=== PATIENT | male | born 1990 | race Caucasian/White ===

== ENCOUNTER 2016-12-16 04:30 | Emergency (ER) | payer BC ==
[~2016-12-16] VITALS: Ht 180.3 cm; Wt 140.6 kg
[~2016-12-16 04:30] MED LIST: HYDROCHLOROTHIAZIDE PO; PROAIR HFA0.09 MG/Ac IH
[2016-12-16 04:54] VITALS: BP 147/78
--- NOTE | 2016-12-16 05:10 | NUR ---
26Y M BIB SELF C/O LEFT KNEE PAIN SINCE 0830PM 12/15/16 . PT STATES HIS DAUGHTER FELL ON HIS KNEE EARLIER TODAY AND SINCE THEN THE AREA HAS GOTTEN MORE SWOLLEN . DENIES N/V/D; SKIN IS PINK/WARM/DRY; AAOX4 WITH EVEN AND STEADY GAIT; LUNGS CLEAR BL; HR EVEN AND REGULAR; PT DENIES ANY FEVER, CP, SOB, OR COUGH AT THIS TIME; PATIENT STATES PAIN OF 6/10 AT THIS TIME; VSS; PATIENT POSITIONED FOR COMFORT; HOB ELEVATED; BEDRAILS UP X2; BED DOWN. ER MD MADE AWARE OF PT STATUS.
--- NOTE | 2016-12-16 05:12 | NUR ---
Patient being evaluated by physician at bedside.
[2016-12-16] MEDS ORDERED: KETOROLAC 60 MG/2 ML VIAL IM ONE (05:15)
[2016-12-16] MEDS ORDERED: traMADol 50 MG TAB PO ONE (05:15)
[2016-12-16 05:41] VITALS: BP 132/79
--- NOTE | 2016-12-16 05:41 | NUR ---
Patient discharged with v/s stable. Written and verbal after care instructions given and explained. Patient alert, oriented and verbalized understanding of instructions. Ambulatory with steady gait. All questions addressed prior to discharge. ID band removed. Patient advised to follow up with PMD. Rx of MOTRIN 800MG, CIPRODEX, AND ULTRAM 50MG given. Patient educated on indication of medication including possible reaction and side effects. Opportunity to ask questions provided and answered.
== END 2016-12-16 05:41 | disposition home or self-care (01) ==
LOC: MED 04:30
DX: S80.02XA Contusion of left knee, initial encounter (principal); H60.91 Unspecified otitis externa, right ear; J45.909 Unspecified asthma, uncomplicated; I10 Essential (primary) hypertension; W19.XXXA Unspecified fall, initial encounter; Y93.89 Activity, other specified; Y92.89 Other specified places as the place of occurrence of the external cause; Y99.8 Other external cause status
CPT/HCPCS: 96372; 99283; J1885

== ENCOUNTER 2019-11-15 02:13 | Emergency (ER) | payer BC, OTHER ==
[~2019-11-15] VITALS: Ht 177.8 cm; Wt 136.1 kg
[~2019-11-15 02:13] MED LIST changes: +ALBU-136 IH; -PROAIR HFA0.09 MG/Ac IH
[2019-11-15 02:15] VITALS: BP 163/91
--- NOTE | 2019-11-15 02:15 | NUR ---
TO BED # 11 AMBULATORY
--- NOTE | 2019-11-15 02:17 | NUR ---
VISUAL ACUITY BOTH EYE 20/40, RT EYE 20/50, LEFT EYE 20/50
--- NOTE | 2019-11-15 02:17 | NUR ---
29 Y/O MALE C/O DAVIS, BLURRY VISION, LIGHT SENSITIVITY, SORETROAT, RT EAR PAIN, CHEST PAIN X 1 DAY. CHEST PAIN AND DAVIS IS CONSTANT AND DESCRIBES IT THROBBING. LUNG SOUNDS ALL CLEAR THORUGHOUT. NO RESP DISTRESS NOTED. HEART SOUND S1S2 PRESENT. VSS, STEADY GAIT. CAP REFILL < 3, NO EDEMA PRESENT. DRY COUGH PRESENT. BRISK 3MM PERRLA. CHILLS. DENIES FEVER,N,V,D. A &O X4. CLEAR SPEECH. RATES PAIN 7/10. EKG SHOWS NSR. NKA. PMH: HTN,ASTHMA
[2019-11-15] MEDS ORDERED: diphenhydrAMINE 50 MG/ML VIAL IM ONE (02:40)
[2019-11-15] MEDS ORDERED: PROCHLORPERAZINE 10 MG/2 ML VIAL IM ONE (02:40)
[2019-11-15 03:14] VITALS: BP 163/91
--- NOTE | 2019-11-15 03:14 | NUR ---
PT DISCHARGED WITH PAPERWORK. EDUCATED PT REGARDING MEDICATIONS AND D/C DIAGNOSIS. PT VERBALIZED UNDERSTANDING OF TEACHING. TOLD PT TO FOLLOW UP WITH PCP AND WHEN TO RETURN TO ED. PT AT STABLE CONDITION. ALL QUESTIONS ANSWERED.
== END 2019-11-15 03:14 | disposition home or self-care (01) ==
LOC: MED 02:13
DX: G43.909 Migraine, unspecified, not intractable, without status migrainosus (principal); H66.91 Otitis media, unspecified, right ear; I10 Essential (primary) hypertension; J45.909 Unspecified asthma, uncomplicated; Z79.899 Other long term (current) drug therapy
CPT/HCPCS: 93005; 96372; 99283; J0780; J1200

== ENCOUNTER 2019-12-17 01:49 | Emergency (ER) | payer OTHER ==
[~2019-12-17] VITALS: Ht 177.8 cm; Wt 139.7 kg
[2019-12-17 01:56] VITALS: BP 135/93
--- NOTE | 2019-12-17 02:06 | NUR ---
PT AMBULATED TO LOBBY. VISUAL ACUITY TO BOTH RT AND LT EYE 20/100; PT REPORTS NORMALLY WEARING GLASSES. NO EYE GLASSES PRESENT DURING EXAM.
--- NOTE | 2019-12-17 02:17 | NUR ---
PT AMBULATED TO BED #7
--- NOTE | 2019-12-17 02:34 | NUR ---
29 Y/O MALE PRESENTS TO ED, C/O HEADACHE THAT STARTED APPROXIMATELY AROUND 0100 THIS MORNING. PAIN IS 9/10, DOES NOT RADIATE. PT DENIES ANY N/V/D. PT DENIES CHEST PAIN. NO SOB/DIFFICULTY BREATHING NOTED. NO MEDICATIONS TAKEN PRIOR COMING TO ED. PT HAS HX OF HTN, STATES BEING COMPLIANT WITH BP MEDS. PT VSS. ERMD AWARE. WILL CONTINUE TO MONITOR.
[2019-12-17] MEDS ORDERED: NACL 0.9% 1,000 ML IV ONE (03:35)
[2019-12-17] MEDS ORDERED: IBUPROFEN 400 MG TAB PO ONE (03:35)
[2019-12-17] MEDS ORDERED: SODIUM CHLORIDE FLUSH 10 ML SYR IVF STA (03:54)
--- NOTE | 2019-12-17 04:17 | NUR ---
XRAY AT BEDSIDE
--- NOTE | 2019-12-17 04:28 | NUR ---
BLOOD DRAWN AND SENT TO LAB AT THIS TIME
[2019-12-17 04:33] LABS: HEMATOCRIT 47.1 % (36-52); HEMOGLOBIN 15.3 g/dL (12.0-18.0); MEAN CORPUSCULAR HEMOGLOBIN 28 pg (27-31); MEAN CORPUSCULAR HGB CONC 33 g/dL (33-37); MEAN CORPUSCULAR VOLUME 84.7 fL (80-94); PLATELET COUNT (AUTO) 286 K/uL (140-450); RED BLOOD CELL COUNT(AUTO) 5.56 MIL/uL (4.20-6.10); RED CELL DISTRIBUTION WIDTH 14.9 % (11.6-13.7); WHITE BLOOD COUNT (AUTO) 10.6 K/uL (4.8-10.8)
[2019-12-17 04:49] LABS: ALBUMIN 3.5 g/dL (3.4-5.0); ANION GAP 11.1 (8-16); CARBON DIOXIDE 27.3 mmol/L (21-32); CREATININE 0.9 mg/dL (0.6-1.3); POTASSIUM 3.4 mmol/L (3.5-5.1); TOTAL BILIRUBIN 0.2 mg/dL (0.0-1.0)
[2019-12-17 04:53] LABS: EOSINOPHILS % (MANUAL) 4 % (0-4); LYMPHOCYTES % (MANUAL) 18 % (20-46); MONOCYTES % (MANUAL) 9 % (5-12)
[2019-12-17 04:56] LABS: PROTHROMBIN TIME 9.6 secs (10.8-13.4)
[2019-12-17] MEDS ORDERED: MORPHINE SULFATE 4 MG/ML SYR IVP STA (06:07)
--- NOTE | 2019-12-17 06:25 | NUR ---
PT RETURNED FROM CT
--- NOTE | 2019-12-17 06:53 | NUR ---
PT STATES SOME RELIEF FROM MEDICATION. PT VSS. ERMD AWARE. WILL CONTINUE TO MONITOR.
[2019-12-17 07:58] VITALS: BP 116/68
--- NOTE | 2019-12-17 07:59 | NUR ---
PT RESTING COMFORTABLY, STATES NO PAIN AFTER MORPHINE GIVEN. VSS.
--- NOTE | 2019-12-17 08:51 | NUR ---
Dr. Costa is evaluating the patient at bedside.
--- NOTE | 2019-12-17 08:52 | NUR ---
DR BERTRAND AT BEDSIDE EXAMINING PATIENT.
--- NOTE | 2019-12-17 09:17 | NUR ---
Patient discharged with v/s stable. Written and verbal after care instructions given and explained. Patient verbalized understanding. Ambulatory with steady gait. All questions addressed prior to discharge. Advised to follow up with PMD. PT DISCHARGED BY DR. BERTRAND.
== END 2019-12-17 09:12 | disposition home or self-care (01) ==
LOC: MED 01:49
DX: R51 Headache (principal); J45.909 Unspecified asthma, uncomplicated; I10 Essential (primary) hypertension; Z79.899 Other long term (current) drug therapy
CPT/HCPCS: 36415; 70496; 70498; 71045; 71275; 80053; 84484; 85025; 85610; 85730; 86886; 86900; 86901; 93005; 96374; 99284; J2270; Q9967; J7030